=== PATIENT | male | born 1940 ===

== ENCOUNTER 2016-09-12 11:13 | Emergency (ER) | payer MEDICARE, OTHER ==
[2016-09-12 11:15] VITALS: BMI 23.6
[2016-09-12 11:17] VITALS: BP 138/67; PULSE 77; RESP 18; TEMP 97.7; O2SAT 99
--- NOTE | 2016-09-12 12:52 | ED PDOC ---
HPI: Male Pain Time Seen by Provider: 09/12/16 11:43 Chief Complaint (Nursing): Male Genitourinary History Per: Patient History/Exam Limitations: no limitations Onset/Duration Of Symptoms: Sudden Onset (this am) Current Symptoms Are (Timing): Still Present Severity: Mild Associated Symptoms: denies: Fever, Chills, Nausea, Vomiting Alleviating Factors: None Additional History Per: Patient Additional Complaint(s): c/o leaking from the bond catheter. Patient's catheter was changed 5 weeks ago , has appointment with Urologist Bernardino on Wednesday. Past Medical History Reviewed: Historical Data, Nursing Documentation, Vital Signs Vital Signs: Last Vital Signs Temp 97.7 F 09/12/16 11:15 Pulse 77 09/12/16 11:15 Resp 18 09/12/16 11:15 BP 138/67 09/12/16 11:15 Pulse Ox 99 09/12/16 11:15 - Medical History PMH: CAD, HTN, Hypercholesterolemia, Chronic Kidney Disease - Surgical History Surgical History: Coronary Stent (2001) - Family History Family History: States: Unknown Family Hx - Living Arrangements Living Arrangements: With Family - Social History Current smoker - smoking cessation education provided: No - Home Medications Home Medications: Ambulatory Orders Medication Instructions Recorded Diazepam [Valium] 2 mg PO Q6 PRN #15 tab 03/27/14 Oxycodone HCl/Acetaminophen 1 tab PO Q6 PRN #10 tab 03/27/14 [Oxycodone and Acetaminophen 325 mg-2.5 mg] - Allergies Allergies/Adverse Reactions: Allergies Allergy/AdvReac Type Severity Reaction Status Date / Time No Known Allergies Allergy Verified 02/21/16 11:23 Review of Systems ROS Statement: Except As Marked, All Systems Reviewed And Found Negative Constitutional: Negative for: Fever, Chills Cardiovascular: Negative for: Chest Pain Respiratory: Negative for: Cough, Shortness of Breath Gastrointestinal: Negative for: Nausea, Vomiting, Abdominal Pain Genitourinary Male: Negative for: Dysuria Physical Exam - Reviewed Nursing Documentation Reviewed: Yes Vital Signs Reviewed: Yes - Physical Exam Appears: Positive for: Well Head Exam: Positive for: ATRAUMATIC, NORMAL INSPECTION, NORMOCEPHALIC Eye Exam: Positive for: Normal appearance Cardiovascular/Chest: Positive for: Regular Rate, Rhythm, Chest Non Tender Respiratory: Positive for: Normal Breath Sounds. Negative for: Decreased Breath Sounds, Accessory Muscle Use, Crackles Gastrointestinal/Abdominal: Positive for: Normal Exam, Bowel Sounds, Soft. Negative for: Tenderness Back: Positive for: Normal Inspection. Negative for: L CVA Tenderness, R CVA Tenderness Extremity: Positive for: Normal ROM. Negative for: Tenderness, Pedal Edema Neurologic/Psych: Positive for: Alert, coremaker experimental II-XII, Oriented. Negative for: Motor/Sensory Deficits - ECG O2 Sat by Pulse Oximetry: 99 Pulse Ox Interpretation: Normal - Progress ED Course And Treament: bond catheter replaced advise close f/u. Re-evaluation Time: 12:53 Condition: Improved Disposition - Clinical Impression Clinical Impression: Bond catheter problem - Patient ED Disposition Is Patient to be Admitted: No Counseled Patient/Family Regarding: Studies Performed, Diagnosis, Need For Followup - Disposition Disposition: Routine/Home Disposition Time: 12:53 Condition: GOOD Additional Instructions: Follow up with your doctor in 2 to 3 days Instructions: Bond Catheter Placement and Care (ED)
== END 2016-09-12 13:20 | disposition home or self-care (01) ==
LOC: H.ER 11:13
DX: T83.038A Leakage of other urinary catheter, initial encounter (principal); I25.10 Atherosclerotic heart disease of native coronary artery without angina pectoris; E78.00 Pure hypercholesterolemia, unspecified; I12.9 Hypertensive chronic kidney disease with stage 1 through stage 4 chronic kidney disease, or unspecified chronic kidney disease; N18.9 Chronic kidney disease, unspecified